=== PATIENT | male | born 1965 | race Caucasian/White ===

== ENCOUNTER → 2019-04-05 | Outpatient (CLI) | payer OTHER ==
[~2019-04-05] MED LIST: ALBIPROI; ALBU90OI61 INH; AMOCLA875 PO; Ativan1 MG PO; BUSP5 PO; CYCL10 PO; FEXPSEER PO; Flomax0.4 MG PO; HYDPAM25 PO; IBUP400 PO; IBUP800 PO; LATUDA20 MG; LORA10; LORA10 PO; LORA2 PO; Norco 10-325 T1 EACH PO; OXYACE5T PO; Percocet 5-3251 EACH PO; Prednisone10 MG PO; Prednisone20 MG PO; QVAR7.3 G1 IH; QVAR7.3 GM IH; Toprol Xl25 MG PO; Ventolin Soln3 ML INH; Ventolin/Prove6.7 GM INH; Zofran Odt4 MG SL
== END ==
LOC: LAB SHORT 18:05 → LAB 18:05
DX: L97.519 Non-pressure chronic ulcer of other part of right foot with unspecified severity (principal)
CPT/HCPCS: 87529

== ENCOUNTER 2021-01-29 20:04 | Inpatient (IN) | payer OTHER ==
[~2021-01-29] VITALS: Ht 170.2 cm; Wt 92.6 kg
[2021-01-29 21:50] LABS: BASOPHILS ABSOLUTE AUTO 0.06 K/mm3 (0.00-0.23); BASOPHILS PERCENT AUTO 1 % (0-2); EOSINOPHILS ABSOLUTE AUTO 0.42 K/mm3 (0.00-0.68); EOSINOPHILS PERCENT AUTO 4 % (0-6); Hematocrit 34.9 % (37.0-53.0); Hemoglobin 12.7 g/dL (13.5-17.5); Mean Corpuscular HGB Conc 36.4 g/dL (31.5-36.5); Mean Corpuscular Volume 102 fL (80-100); Mean Platelet Volume 12.2 fL (9.1-12.4); NRBC ABSOLUTE 0.07 K/mm3 (0.00-0.02); NRBC Auto 0.7 /100 WBC (0.0-0.2); Platelet Count 115 K/mm3 (150-400); RDW Coefficient Variation 16.7 % (11.7-14.2); RDW Standard Deviation 61.1 fL (35.1-46.3); Red Blood Cell Count 3.43 M/mm3 (4.30-5.90); White Blood Cell Count 9.52 K/mm3 (4.00-11.30)
[2021-01-29 21:56] LABS: IMMATURE GRAN ABSOLUTE AUTO 0.14 K/mm3 (0.00-0.10); IMMATURE GRAN PERCENT AUTO 2 % (0-1); LYMPHOCYTES ABSOLUTE AUTO 1.95 K/mm3 (0.84-5.20); LYMPHOCYTES PERCENT AUTO 21 % (21-46); MONOCYTES PERCENT AUTO 14 % (4-13); NEUTROPHILS ABSOLUTE AUTO 5.65 K/mm3 (1.96-9.15); NEUTROPHILS PERCENT AUTO 59 % (41-73)
[2021-01-29] MEDS ORDERED: Ventolin/Prove6.7 GM INH (22:05)
[2021-01-29 22:11] LABS: Alanine Aminotransfer (ALT/SGP 138 U/L (12-78); Albumin, Blood 1.4 g/dL (3.4-5.0); Albumin/Globulin Ratio 0.3 (0.8-1.8); Alk Phos 111 U/L (50-136); Anion Gap 5 mmol/L (6-16); Aspartate Aminotrans (AST/SGOT 542 U/L (12-37); Bilirubin, Total 2.1 mg/dL (0.1-1.0); Blood Urea Nitrogen 24 mg/dL (8-24); Bun/Creatinine Ratio 19.8 (12.0-20.0); CO2, Blood 27 mmol/L (21-32); Calcium, Blood 7.5 mg/dL (8.5-10.1); Chloride, Blood 109 mmol/L (98-108); Creatinine, Blood 1.21 mg/dL (0.60-1.20); Globulin, Blood 5.1 g/dL (2.2-4.0); Glomerular Filtration Rate >60 (60-); Glucose, Blood 74 mg/dL (70-99); Magnesium, Blood 2.4 mg/dL (1.6-2.4); Potassium, Blood 3.9 mmol/L (3.5-5.5); Sodium, Blood 141 mmol/L (136-145); Total Protein, Blood 6.5 g/dL (6.4-8.2); Troponin I 0.085 ng/mL (0.000-0.040)
[2021-01-30 01:48] LABS: U Amphetamine Screen Not Detected; U Barbituate Screen Not Detected; U Benzodiazapine Screen Not Detected; U Buprenorphine Screen Not Detected; U Cannabinoids Screen DETECTED; U Cocaine Screen Not Detected; U Methadone Screen Not Detected; U Methamphetamine Screen Not Detected; U Opiates Screen Not Detected; U Oxycodone Screen Not Detected; U Phencyclidine Screen Not Detected; U Propoxyphene Screen Not Detected
[2021-01-30 06:11] LABS: Hematocrit 35.8 % (37.0-53.0); Hemoglobin 12.5 g/dL (13.5-17.5); Mean Corpuscular HGB 36.2 pg (26.0-34.0); Mean Corpuscular HGB Conc 34.9 g/dL (31.5-36.5); Mean Corpuscular Volume 104 fL (80-100); Mean Platelet Volume 12.8 fL (9.1-12.4); Platelet Count 120 K/mm3 (150-400); RDW Coefficient Variation 16.8 % (11.7-14.2); RDW Standard Deviation 62.5 fL (35.1-46.3); Red Blood Cell Count 3.45 M/mm3 (4.30-5.90)
[2021-01-30 06:13] LABS: NRBC ABSOLUTE 0.09 K/mm3 (0.00-0.02); NRBC Auto 0.9 /100 WBC (0.0-0.2); White Blood Cell Count 10.41 K/mm3 (4.00-11.30)
[2021-01-30 06:45] LABS: BASOPHILS PERCENT MAN 0 % (0-2); EOSINOPHILS PERCENT MAN 0 % (0-6); LYMPHOCYTES ABSOLUTE MAN 2.18 K/mm3 (0.84-5.20); LYMPHOCYTES PERCENT MAN 21 % (21-46); MONOCYTES ABSOLUTE MAN 0.41 K/mm3 (0.16-1.47); MONOCYTES PERCENT MAN 4 % (4-13); SEG NEUTROPHILS PERCENT MAN 75 % (41-73); TOTAL CELLS COUNTED 100
[2021-01-30 06:49] LABS: Alanine Aminotransfer (ALT/SGP 128 U/L (12-78); Albumin, Blood 1.8 g/dL (3.4-5.0); Albumin/Globulin Ratio 0.4 (0.8-1.8); Alk Phos 107 U/L (50-136); Anion Gap 9 mmol/L (6-16); Aspartate Aminotrans (AST/SGOT 485 U/L (12-37); Bilirubin, Total 2.2 mg/dL (0.1-1.0); Blood Urea Nitrogen 24 mg/dL (8-24); Bun/Creatinine Ratio 21.8 (12.0-20.0); CO2, Blood 25 mmol/L (21-32); Calcium, Blood 7.4 mg/dL (8.5-10.1); Chloride, Blood 108 mmol/L (98-108); Globulin, Blood 4.7 g/dL (2.2-4.0); Glomerular Filtration Rate >60 (60-); Glucose, Blood 95 mg/dL (70-99); Sodium, Blood 142 mmol/L (136-145); Total Protein, Blood 6.5 g/dL (6.4-8.2); Troponin I 0.098 ng/mL (0.000-0.040)
[2021-01-30 07:09] LABS: CPK Creatine Kinase 4838 U/L (39-308)
[2021-01-30 07:23] LABS: Creatine Kinase MB 34.5 ng/mL (0.0-3.6); Creatine Kinase MB Index 0.7 (0.0-4.0)
--- NOTE | 2021-01-30 08:52 | NUR ---
NO DISTRESS, PULLING AT LINES, BED ALARM ON, STAND BY ASSIST TO BSC, UNSTEADY GAIT, NPO, DESATS WITH MINIMAL ACTIVITY TO 85%, RECOVERS TO 90% SATS SLOWLY, MUMBLED SPEECH, WCTM
[2021-01-30 14:44] LABS: Troponin I 0.059 ng/mL (0.000-0.040)
[2021-01-30 15:09] LABS: Creatine Kinase MB 29.3 ng/mL (0.0-3.6); Creatine Kinase MB Index 0.8 (0.0-4.0)
--- NOTE | 2021-01-30 15:12 | NUR ---
PATIENT DIFFICULT CONTRERAS PLACEMENT, 2 TIMES UNSUCCESSFUL, PATIENT MEDICATED FOR PAIN AND ANXIETY DURING THE PLACEMENT FOR BOTH THE CONTRERAS AND PG. PATIENT TOLERATED WELL ONCE MEDICATED. NO UA SENT WITH THE CONTRERAS PLACEMENT DUE TO BLOOD DRAINING IN THE CONTRERAS. THICK DARK RED CLOTTING BLOOD DRAINING IN CONTRERAS, 3RD CONTRERAS PLACED MORE BLOOD DRAIING AND CLOTTING, IRRIGATED, CLEAR FLUID NOW DRAING IN CONTRERAS BAG. DR JOHNSON CONSULTED, ECHO IN ROOM NOW, TO HAVE LIVER US AND ABD LIMITED. VSS, BED ALARM ON, CALL LIGHT WIHT IN REACH, PATIENT SLEEPING NOW
--- NOTE | 2021-01-30 15:42 | NUR ---
GALLBLADDER AND LIVER US AT BEDSIDE NOW
--- NOTE | 2021-01-30 17:48 | NUR ---
NOTIFIED DR JOHNSON, BIPAP SETTINGS 21/11/09/100%, MINIMAL RESPONSE, HEART RATE 50S, RESP 30-40. PATIENT HAVING PICC PLACED NOW, PREPPED FOR INTUBATION, SB PROPOFOL NOREPINPHRINE NS, STAT XRAY FOR PICC PLACEMENT NOW, SATS 85-88%
--- NOTE | 2021-01-30 18:12 | NUR ---
INTUBATED SIZE 8 26 AT THE LIP, VENT SETTINGS PEEP 12 FIO2 90%, OG PLACED, PICC LINE DRESSING REINFORCED, DR JOHNSON DOING BEDSIDE US OF BLADDER
--- NOTE | 2021-01-30 18:45 | NUR ---
RSI 50 MCG FENTANYL 1801, 80 MG PROPOFOL 1804, 50 MG ROXANE 1804, 40 MG PROPOFOL 1806, CO2 COLOR CHANGE AND PEEWEE BREATH SOUNDS. NEW CONTRERAS PLACED BY DR JOHNSON WITH US, DRAINING URINE HEMATURIA, FLUSHED 60 ML, STAT LOCK IN PLACE. ET TUBE PLACEMENT CONFIRMED WITH CXRAY, PICC LINE CONFIRMED.
--- NOTE | 2021-01-30 20:55 | NUR ---
PT DESAT'S DOWN TO 77% AFTER TURNING. PT CONTINUED TO HAVE LOW SATS. RT WAS CALLED AND INCREASED PEEP TO 14. DR. JOHNSON WAS NOTIFIED OF INCIDENT AND THT PT WAS NOW ON LEVOPHED 5MCG/MIN AND THAT PT'S HR WAS 48-50. DR. JOHNSON STATES TO KEEP PT SEDATED AND KEEP GOING WITH LEVOPHED; IF HR CONTINUES TO DECLINE, CALL DR. JOHNSON BACK FOR ORDER FOR EPI GTT.
[2021-01-30 23:19] LABS: Hemoglobin 11.1 g/dL (13.5-17.5)
--- NOTE | 2021-01-31 01:13 | NUR ---
SIGNIFICANT EVENT PT CATHETER STOPPED DRAINING. NURSE AND CHARGE NURSE IRRIGATED CATHETER WITH MINIMAL OUTPUT. THERE IS LIKELY A CLOT OCCLUDING THE CATHETER. BLADDER SCAN REVEALED 300-700 IN BLADDER. PHYSICIAN NOTIFIED. NO NEW ORDERS. WILL CONTINUE TO MONITOR BLADDER VOLUME AND WILL NOTIFY PHYSICIAN FOR SIGNIFICANT INCREASE.
[2021-01-31 03:32] LABS: Hematocrit 31.2 % (37.0-53.0); Hemoglobin 10.7 g/dL (13.5-17.5); Mean Corpuscular HGB 36.8 pg (26.0-34.0); Mean Corpuscular HGB Conc 34.3 g/dL (31.5-36.5); Mean Corpuscular Volume 107 fL (80-100); NRBC ABSOLUTE 0.08 K/mm3 (0.00-0.02); NRBC Auto 0.3 /100 WBC (0.0-0.2); Platelet Count 114 K/mm3 (150-400); RDW Coefficient Variation 17.2 % (11.7-14.2); RDW Standard Deviation 65.5 fL (35.1-46.3); Red Blood Cell Count 2.91 M/mm3 (4.30-5.90)
[2021-01-31 03:51] LABS: BAND PERCENT MAN 3 % (0-8); BASOPHILS PERCENT MAN 0 % (0-2); EOSINOPHILS PERCENT MAN 0 % (0-6); LYMPHOCYTES ABSOLUTE MAN 1.19 K/mm3 (0.84-5.20); LYMPHOCYTES PERCENT MAN 5 % (21-46); MONOCYTES PERCENT MAN 8 % (4-13); SEG NEUTROPHILS PERCENT MAN 84 % (41-73); TOTAL CELLS COUNTED 100
[2021-01-31 04:01] LABS: Albumin, Blood 1.4 g/dL (3.4-5.0); Albumin/Globulin Ratio 0.3 (0.8-1.8); Bilirubin, Total 1.5 mg/dL (0.1-1.0); Bun/Creatinine Ratio 24.6 (12.0-20.0); Creatinine, Blood 1.34 mg/dL (0.60-1.20); Globulin, Blood 4.5 g/dL (2.2-4.0); Potassium, Blood 3.7 mmol/L (3.5-5.5); Total Protein, Blood 5.9 g/dL (6.4-8.2)
--- NOTE | 2021-01-31 07:51 | NUR ---
Assumed care of pt at 0700 with [facility]. Report received from Kathy MILES. Per report, no output from [place] and difficult to flush. Dr Middleton aware. Provider also aware of AM labs per offgoing RN.
--- NOTE | 2021-01-31 08:56 | NUR ---
NONRESPONSIVE, PROPOFOL GTT, FENTANYL PRN FOR GRIMACING, RESTRAINTS ON, REPOSITIONED, NO DISTRESS VENT ACVC PEEP 12, TV 400, RATE 24, 70% FIO2, SATS AT 95%, NO DISTRESS, WCTM
--- NOTE | 2021-01-31 11:19 | NUR ---
DR JOHNSON AT BEDSIDE, CONTRERAS REMOVED, TRIED PLACING A THREE WAY CONTRERAS, UNSUCCESSFUL, 16FR AND 18 COUDA TRIED AND UNSUCCESSFUL. PATIENT SEDATED, CATH CARE, MINIMAL BLEEDING FROM URETHRA, US AT BEDSIDE USED TO VIEW THE BLADDER, PATIETN POSSIBLE TRANSFER FOR UROLOGY CARE, STAT CT NOW
--- NOTE | 2021-01-31 12:06 | NUR ---
PATIENT BACK FROM CT, [facility] HAS ACCEPTED THE PATIENT, MINIMAL BLOOD FROM THE URETHRA, SEDATED, INTUBATED, REPOSITIONED
[2021-01-31 13:02] LABS: Influenza A, PCR NEGATIVE (NEGATIVE); Influenza B, PCR NEGATIVE (NEGATIVE); Resp Syncytial Virus, PCR NEGATIVE (NEGATIVE)
[2021-01-31 13:05] LABS: SARS-Cov-2 (COVID-19) PCR, MMC POSITIVE (NEGATIVE)
--- NOTE | 2021-01-31 14:39 | NUR ---
TRANSFER REPORT TO DEDE MILES AT [facility], DR CARTER ACCEPTING PHYSICIAN, ABD CT RESULTS AND PCR POSITIVE COVID REPORTED TO DEDE MILES AND REACH TRANSPORT TEAM. HERMILA TRANSFERRED VIA [employer] WITH REACH.
== END 2021-01-31 13:35 | disposition short-term general hospital (02) | DRG 208 ==
LOC: ER 20:04 → ICUE 20:05 → ICUW 20:05 → ICUE 23:33
PROVIDERS: Internal Medicine; Internal Medicine Critical Care Medicine; Student in an Organized Health Care Education/Training Program; ADMIT Internal Medicine
PROC: 5A1935Z Respiratory Ventilation, Less than 24 Consecutive Hours (ICD-10-PCS; principal; 2021-01-30)
PROC: 8E0ZXY6 Isolation (ICD-10-PCS; 2021-01-30)
PROC: 3E033XZ Introduction of Vasopressor into Peripheral Vein, Percutaneous Approach (ICD-10-PCS; 2021-01-30)
PROC: 3E0333Z Introduction of Anti-inflammatory into Peripheral Vein, Percutaneous Approach (ICD-10-PCS; 2021-01-30)
PROC: XW033E5 Introduction of Remdesivir Anti-infective into Peripheral Vein, Percutaneous Approach, New Technology Group 5 (ICD-10-PCS; 2021-01-30)
PROC: XW0DXM6 Introduction of Baricitinib into Mouth and Pharynx, External Approach, New Technology Group 6 (ICD-10-PCS; 2021-01-30)
PROC: 0BH18EZ Insertion of Endotracheal Airway into Trachea, Via Natural or Artificial Opening Endoscopic (ICD-10-PCS; 2021-01-30)
PROC: 5A09357 Assistance with Respiratory Ventilation, Less than 24 Consecutive Hours, Continuous Positive Airway Pressure (ICD-10-PCS; 2021-01-30)
DX: U07.1 COVID-19 (principal); J96.01 Acute respiratory failure with hypoxia; J12.82 Pneumonia due to coronavirus disease 2019; I21.4 Non-ST elevation (NSTEMI) myocardial infarction; N17.9 Acute kidney failure, unspecified; M62.82 Rhabdomyolysis; R18.8 Other ascites; K74.60 Unspecified cirrhosis of liver; N13.9 Obstructive and reflux uropathy, unspecified; Z90.49 Acquired absence of other specified parts of digestive tract; J45.909 Unspecified asthma, uncomplicated; G89.29 Other chronic pain; M54.9 Dorsalgia, unspecified; I10 Essential (primary) hypertension; Z79.899 Other long term (current) drug therapy; Z91.013 Allergy to seafood; Z98.890 Other specified postprocedural states; R79.89 Other specified abnormal findings of blood chemistry; K42.9 Umbilical hernia without obstruction or gangrene; Z87.891 Personal history of nicotine dependence; Z28.20 Immunization not carried out because of patient decision for unspecified reason
CPT/HCPCS: 0241U; 31500; 36415; 51700; 51703; 71045; 71260; 74176; 76705; 80053; 82550; 82553; 83735; 83880; 84484; 85014; 85018; 85025; 85379; 86140; 93005; 93010; 93306; 94002; 94644; 94660; 94760; 96365-59; 96375-59; 99285-25; A9270; C1751; C9113; J0171; J0696; J1100; J1650; J1940; J2060; J2704; J3010; J3475; J7030; J7050; J7060; P9046; Q9967